=== PATIENT | male | born 1965 | race American Indian/Alaskan Native ===

== ENCOUNTER 2017-01-18 13:31 | Observation (INO) | payer OTHER ==
[2017-01-18 13:58] VITALS: BMI 25.0
--- NOTE | 2017-01-18 14:35 | PDOC ---
History of Present Illness - General Chief Complaint: Chest Pain Stated Complaint: CHEST PAIN Time Seen by Provider: 01/18/17 13:41 History Source: Patient Exam Limitations: No Limitations - History of Present Illness Initial Comments: 01/18/17 14:36 51 y.o. M with no pmh presenting with mid back pain and chest tightness. Patient was at work 2 hrs ago when he began having this pain. At it's worst it was 7/10, nonradiating, pressure like pain. Patient took 2 pills of aspirin 325 prior to arriving. Patient had a cardiac cath in 2009 @ [facility], which he states was negative. Patient also endorses diaphoresis and left arm dullness. Patient denies nausea, vomiting, abdominal pain, syncope. PSH: cardiac cath in 2009 @ [facility] All: NKDA FH: Mom with CAD w/ stents SH: denies smoking, alcohol, or drug use PCP: Dr. Michelle Past History - Past Medical History Allergies/Adverse Reactions: Allergies Allergy/AdvReac Type Severity Reaction Status Date / Time No Known Allergies Allergy Verified 01/18/17 13:56 Home Medications: Ambulatory Orders Hydroxyzine HCl [Atarax] 25 mg PO QID #30 tablet 10/29/11 No Home Medications 0 dose .ROUTE UTDICT 10/29/11 Prednisone [Deltasone -] 40 mg PO DAILY #7 tablet 10/29/11 Anemia: No Asthma: No Cancer: No Cardiac Disorders: No CVA: No COPD: No CHF: No DVT: No Dementia: No Diabetes: No Dialysis: No GI Disorders: No - Suicide/Smoking/Psychosocial Hx Smoking Status: No Smoking History: Never smoked Number of Cigarettes Smoked Daily: 0 Hx Alcohol Use: No Drug/Substance Use Hx: No Review of Systems - Review of Systems Able to Perform ROS?: Yes Comments:: 01/18/17 14:35 GENERAL/CONSTITUTIONAL: No fever or chills. No weakness. HEAD, EYES, EARS, NOSE AND THROAT: No change in vision. No ear pain or discharge. No sore throat. CARDIOVASCULAR: +chest tightness, No shortness of breath, +Diaphoresis RESPIRATORY: No cough, wheezing, or hemoptysis. GASTROINTESTINAL: No nausea, vomiting, diarrhea or constipation. GENITOURINARY: No dysuria, frequency, or change in urination. MUSCULOSKELETAL: No joint or muscle swelling or pain. No neck pain. +back pain SKIN: No rash NEUROLOGIC: No headache, vertigo, loss of consciousness, or change in strength/ sensation. ENDOCRINE: No increased thirst. No abnormal weight change HEMATOLOGIC/LYMPHATIC: No anemia, easy bleeding, or history of blood clots. ALLERGIC/IMMUNOLOGIC: No hives or skin allergy. *Physical Exam - Vital Signs Last Vital Signs Temp Pulse Resp BP Pulse Ox 97.7 F 80 16 140/91 100 01/18/17 13:56 01/18/17 13:56 01/18/17 13:56 01/18/17 13:58 01/18/17 13:56 - Physical Exam Comments: 01/18/17 14:35 GENERAL: Awake, alert, and fully oriented, in no acute distress HEAD: No signs of trauma, normocephalic, atraumatic EYES: PERRLA, EOMI, sclera anicteric, conjunctiva clear ENT: Auricles normal inspection, hearing grossly normal, nares patent, oropharynx clear without exudates. Moist mucosa NECK: Normal ROM, supple, no lymphadenopathy, JVD, or masses LUNGS: No distress, speaks full sentences, clear to auscultation bilaterally HEART: Regular rate and rhythm, normal S1 and S2, no murmurs, rubs or gallops, peripheral pulses normal and equal bilaterally. ABDOMEN: Soft, nontender, normoactive bowel sounds. No guarding, no rebound. No masses EXTREMITIES: Normal inspection, Normal range of motion, no edema. No clubbing or cyanosis. NEUROLOGICAL: Cranial nerves II through XII grossly intact. Normal speech, normal gait, no focal sensorimotor deficits SKIN: Warm, Dry, normal turgor, no rashes or lesions noted. ED Treatment Course - LABORATORY CBC & Chemistry Diagram: 01/18/17 14:24 01/18/17 14:24 - RADIOLOGY Radiology Studies Ordered: Category Date Time Status CHEST PA & LAT [RAD] Stat Radiology 01/18/17 14:19 Ordered Medical Decision Making - Medical Decision Making 01/18/17 14:44 51 y.o. M with no pmh presenting with mid back pain and chest tightness. Ddx: ACS, Pneumonia, Angina Plan: CBC, CMP, CXR, EKG, cardiac profile 01/18/17 16:52 CBC, CMP, CXR, EKG- unremarkable Troponins negative Patient to be admitted to hospitalist -- Obs *DC/Admit/Observation/Transfer Diagnosis at time of Disposition: Chest pain, rule out acute myocardial infarction - Discharge Dispostion Admit: Yes
[2017-01-18 14:49] LABS: BASOPHIL 0.7 % (0-2.0); EOSINOPHIL 0.6 % (0-4.5); MCH 26.5 pg (25.7-33.7); MCHC 33.1 g/dl (32.0-35.9); MEAN PLT VOLUME 8.7 fl (7.5-11.1); PLATELET COUNT 250 K/MM3 (134-434); RDW 13.5 % (11.9-15.9); WHITE BLOOD COUNT 9.3 K/mm3 (4.0-10.0)
[2017-01-18 15:07] LABS: ALBUMIN 3.9 g/dl (3.4-5.0); ANION GAP 6 (8-16); CO2 27 mmol/L (21-32); GLUCOSE,RANDOM 83 mg/dL (74-106)
[2017-01-18 15:12] LABS: ALK PHOS 85 U/L (45-117); BILIRUBIN,TOTAL 0.4 mg/dL (0.2-1.0); CPK 159 IU/L (39-308); CREATININE 0.9 mg/dL (0.7-1.3); SGOT/AST 26 U/L (15-37); SGPT/ALT 37 U/L (12-78); TOT PROT 7.7 g/dl (6.4-8.2); TROPONIN I 0.02 ng/ml (0.00-0.05)
--- NOTE | 2017-01-18 15:25 | EKG ---
Test Reason : Blood Pressure : / mmHG Vent. Rate : 087 BPM Atrial Rate : 087 BPM P-R Int : 166 ms QRS Dur : 096 ms QT Int : 378 ms P-R-T Axes : 048 060 055 degrees QTc Int : 454 ms NORMAL SINUS RHYTHM NORMAL ECG WHEN COMPARED WITH ECG OF 15-SEP-2007 16:43, NO SIGNIFICANT CHANGE WAS FOUND Confirmed by AARON LIEBERMAN MD ([id number]) on 01/18/2017 3:25:41 PM Referred By: Confirmed By:AARON LIEBERMAN MD
--- NOTE | 2017-01-18 15:47 | PDOC ---
Attending Attestation - Resident Resident Name: KrupajeremiasLoul - ED Attending Attestation I have performed the following: I have examined & evaluated the patient, The case was reviewed & discussed with the resident, I agree w/resident's findings & plan, Exceptions are as noted - HPI HPI: 01/18/17 15:42 51yo M denies PMH p/w chest pressure and mid back pain. 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 Pain 7/10 in mid back + chest. Pain a/w diaphoresis and dull pain to L shoulder. Pain is not pleuritic in nature. Took 2 ASA 325mg. No fevers, chills. No SOB. Was in his [employer]. Denies headache, focal weakness/ numbness. Denies recent travel/immobilization. Denies rashes, dysuria. Had similar symptoms in 2009, had a negative cath at [facility] at the time. Denies smoking. Mom had CAD with stents. Heart Score/ECG Review - History History: Highly suspicious - Electrocardiogram EKG: Normal - Age Age: 45-65 - Risk Factors Risk Factors Heart Score: Yes Positive family hx of cardiac disease Based on the list above the patient has:: 1-2 risk factors - Troponin Troponin: </= normal limit - Score Heart Score - Total: 4
--- NOTE | 2017-01-18 16:52 | HP ---
CHIEF COMPLAINT: Chest pain PCP: Dr. Michelle HISTORY OF PRESENT ILLNESS: This is a 51 year old male with PMHx of cardiac cath 2013, who presented to the ED with mid scapular pain with sudden onset at 11:45 am with left chest pain radiating to his left shoulder. The patient reports he has had a similar presentation in 2009 and 2013. In 2013 he states he had an ECHO, stress test, and cardiac cath which were all negative. He reports taking two ASA 325mg today when he began to feel the pain. He states the pain in his back was about a 7/10 and describes it as pressure like pain. He had associated diaphoresis. He denies any nausea, vomiting, abdominal pain, dizziness, headache, shortness of breath, lower extremity tingling or swelling ER course was notable for: (1) Temp 97.7, pulse 80, BP left arm 149/93, BP right arm 140/91, resp 16, O2 100% on RA (2) Trop x1 negative Recent Travel: denies PAST MEDICAL HISTORY: as above PAST SURGICAL HISTORY: denies Social History: Smoking: denies Alcohol: denies Drugs: denies Family History: Allergies No Known Allergies Allergy (Verified 01/18/17 13:56) HOME MEDICATIONS: Home Medications Medication Instructions Recorded Hydroxyzine HCl [Atarax] 25 mg PO QID #30 tablet 10/29/11 No Home Medications 0 dose .ROUTE UTDICT 10/29/11 Prednisone [Deltasone -] 40 mg PO DAILY #7 tablet 10/29/11 REVIEW OF SYSTEMS CONSTITUTIONAL: Diaphoresis. Absent: fever, chills, generalized weakness, malaise, loss of appetite, weight change HEENT: Absent: rhinorrhea, nasal congestion, throat pain, throat swelling, difficulty swallowing, mouth swelling, ear pain, eye pain, visual changes CARDIOVASCULAR: Mid scapular pain, left chest pain radiating to his left shoulder beginning around 11:45 this morning. Absent: syncope, palpitations, irregular heart rate, lightheadedness, peripheral edema RESPIRATORY: Absent: cough, shortness of breath, dyspnea with exertion, orthopnea, wheezing, stridor, hemoptysis GASTROINTESTINAL:Absent: abdominal pain, abdominal distension, nausea, vomiting , diarrhea, constipation, melena, hematochezia GENITOURINARY: Absent: dysuria, frequency, urgency, hesitancy, hematuria, flank pain, genital pain MUSCULOSKELETAL: Absent: myalgia, arthralgia, joint swelling, back pain, neck pain SKIN: Absent: rash, itching, pallor HEMATOLOGIC/IMMUNOLOGIC: Absent: easy bleeding, easy bruising, lymphadenopathy, frequent infections ENDOCRINE:Absent: unexplained weight gain, unexplained weight loss, heat intolerance, cold intolerance NEUROLOGIC: Absent: headache, focal weakness or paresthesias, dizziness, unsteady gait, seizure, mental status changes, bladder or bowel incontinence PSYCHIATRIC: Absent: anxiety, depression, suicidal or homicidal ideation, hallucinations. PHYSICAL EXAMINATION Vital Signs - 24 hr 01/18/17 01/18/17 13:56 13:58 Temperature 97.7 F Pulse Rate 80 Respiratory 16 Rate Blood Pressure 140/91 Blood Pressure 149/93 [Left Arm] Blood Pressure 140/91 [Right Arm] O2 Sat by Pulse 100 Oximetry (%) GENERAL: Awake, alert, and fully oriented, in no acute distress. HEAD: Normal with no signs of trauma. EYES: Pupils equal, round and reactive to light, sclera anicteric, conjunctiva clear. No lid lag. LUNGS: Breath sounds equal, clear to auscultation bilaterally. No wheezes, and no crackles. No accessory muscle use. HEART: Regular rate and rhythm, normal S1 and S2 without murmur, rub or gallop. ABDOMEN: Soft, nontender, not distended, normoactive bowel sounds, no guarding, no rebound, no masses. No hepatomegaly or splenomegaly. MUSCULOSKELETAL: Normal range of motion at all joints. No bony deformities or tenderness. No CVA tenderness. UPPER EXTREMITIES: 2+ pulses, warm, well-perfused. No cyanosis. No clubbing. No peripheral edema. LOWER EXTREMITIES: 2+ pulses, warm, well-perfused. No calf tenderness. No peripheral edema. NEUROLOGICAL: Cranial nerves II-XII intact. Normal speech. Normal gait. PSYCHIATRIC: Cooperative. Good eye contact. Appropriate mood and affect. SKIN: Warm, dry, normal turgor, no rashes or lesions noted, normal capillary refill. CBCD WBC 9.3 K/mm3 (4.0-10.0) 01/18/17 14:24 RBC 5.74 M/mm3 (4.00-5.60) H 01/18/17 14:24 Hgb 15.2 GM/dL (11.7-16.9) 01/18/17 14:24 Hct 45.9 % (35.4-49) 01/18/17 14:24 MCV 80.0 fl (80-96) 01/18/17 14:24 MCHC 33.1 g/dl (32.0-35.9) 01/18/17 14:24 RDW 13.5 % (11.9-15.9) 01/18/17 14:24 Plt Count 250 K/MM3 (134-434) 01/18/17 14:24 MPV 8.7 fl (7.5-11.1) 01/18/17 14:24 CMP Sodium 135 mmol/L (136-145) L 01/18/17 14:24 Potassium 4.5 mmol/L (3.5-5.1) 01/18/17 14:24 Chloride 102 mmol/L (98-107) 01/18/17 14:24 Carbon Dioxide 27 mmol/L (21-32) 01/18/17 14:24 Anion Gap 6 (8-16) L 01/18/17 14:24 BUN 14 mg/dL (7-18) 01/18/17 14:24 Creatinine 0.9 mg/dL (0.7-1.3) 01/18/17 14:24 Creat Clearance w eGFR > 60 (>60) 01/18/17 14:24 Random Glucose 83 mg/dL (74-106) 01/18/17 14:24 Calcium 9.0 mg/dL (8.5-10.1) 01/18/17 14:24 Total Bilirubin 0.4 mg/dL (0.2-1.0) 01/18/17 14:24 AST 26 U/L (15-37) 01/18/17 14:24 ALT 37 U/L (12-78) 01/18/17 14:24 Alkaline Phosphatase 85 U/L (45-117) 01/18/17 14:24 Total Protein 7.7 g/dl (6.4-8.2) 01/18/17 14:24 Albumin 3.9 g/dl (3.4-5.0) 01/18/17 14:24 CARDIAC ENZYMES Creatine Kinase 159 IU/L (39-308) 01/18/17 14:24 Troponin I 0.02 ng/ml (0.00-0.05) 01/18/17 14:24 Assessment: This is a 51 year old male with PMHx of cardiac cath 2013, who presented to the ED with mid scapular pain with sudden onset at 11:45 am with left chest pain radiating to his left shoulder. Plan: 1) Mid-sternal back pain, sudden onset - BP equal bilaterally - F/u CTA to r/o dissection 2) Chest pain - Trop x1 negative, trend x3 - EKG with NSR - Patient took ASA 325mg x2 today - F/u ECHO - F/u TSH, HgbA1c - F/u lipid panel - Attempt to obtain cath records from [facility] - F/u cardiology consult 3) F/E/N: - Monitor electrolytes - Regular diet 4) Prophylaxis: - SCDs bilaterally - OOB ambulating 5) Dispo: - Once condition improves CODE STATUS: FULL CODE Visit type - Emergency Visit Emergency Visit: Yes ED Registration Date: 01/18/17 Care time: The patient presented to the Emergency Department on the above date and was hospitalized for further evaluation of their emergent condition. - New Patient This patient is new to me today: Yes Date on this admission: 01/18/17 - Critical Care Critical Care patient: No
[2017-01-18] MEDS ORDERED: FLU VACCINE QUAD 60 MCG/0.5 ML (MDV 17-18) IM ONE (21:30)
[2017-01-18 22:02] LABS: TROPONIN I 0.51 ng/ml (0.00-0.05)
[2017-01-18] MEDS ORDERED: HEPARIN NA (PORCINE) 5,000 UNITS/ML 1ML VIAL IVPUSH PRN ×2 (22:53)
[2017-01-18] MEDS ORDERED: METOPROLOL TARTRATE 5 MG/5 ML VIAL IVPUSH ONE (22:54)
[2017-01-18] MEDS: HEPARIN INFUSION - 500 ML IVPB SCH (22:55)
--- NOTE | 2017-01-18 23:04 | HOSP ---
Subjective - Review of Symptoms Events since last encounter: Hospitalist Encounter Notified by Linoleum Installer, Dr. Corina Mcallister that the RN informed her of the Troponin I 0.51. Will need to start patient on Heparin Drip Spoke with the RN, a call was placed to Cardiology regarding the results Order placed for Stat EKG, INR Patient seen at bedside, reports lumbar pain, denies chest pain Orders, placed for Lopressor IV, Morphine Sulfate IV, O2 EKG reviewed, no acute ST or TWI noted Informed Dr. Schroeder of results, who agreed with starting anticoagulation. 03:39 Notified by RN that the Trop I #3 0.87. Per RN, patient has lumbar pain, denies chest pain EKG repeated- no change Plavix 300mg ordered stat Will continue to monitor RN informed Dr. Schroeder of Trop I- possible transfer for Cardiac Cath Physical Examination Vital Signs: Vital Signs Temperature 98.6 F 01/18/17 20:56 Pulse Rate 90 01/18/17 20:56 Respiratory Rate 18 01/18/17 20:56 Blood Pressure 137/90 01/18/17 20:56 O2 Sat by Pulse Oximetry (%) 98 01/18/17 20:56 Constitutional: Yes: Well Nourished, Mild Distress Eyes: Yes: WNL, Conjunctiva Clear, PERRL HENT: Yes: WNL, Atraumatic, Normocephalic Neck: Yes: WNL, Supple, Trachea Midline Cardiovascular: Yes: WNL, Regular Rate and Rhythm, S1, S2 Respiratory: Yes: WNL, Regular, CTA Bilaterally Gastrointestinal: Yes: WNL, Normal Bowel Sounds, Soft Musculoskeletal: Yes: Back Pain Extremities: Yes: WNL Edema: No Peripheral Pulses WNL: Yes Integumentary: Yes: WNL Neurological: Yes: WNL, Alert, Oriented ...Motor Strength: WNL Psychiatric: Yes: WNL, Alert, Oriented Labs: CBCD WBC 9.3 K/mm3 (4.0-10.0) 01/18/17 14:24 RBC 5.74 M/mm3 (4.00-5.60) H 01/18/17 14:24 Hgb 15.2 GM/dL (11.7-16.9) 01/18/17 14:24 Hct 45.9 % (35.4-49) 01/18/17 14:24 MCV 80.0 fl (80-96) 01/18/17 14:24 MCHC 33.1 g/dl (32.0-35.9) 01/18/17 14:24 RDW 13.5 % (11.9-15.9) 01/18/17 14:24 Plt Count 250 K/MM3 (134-434) 01/18/17 14:24 MPV 8.7 fl (7.5-11.1) 01/18/17 14:24 CMP Sodium 135 mmol/L (136-145) L 01/18/17 14:24 Potassium 4.5 mmol/L (3.5-5.1) 01/18/17 14:24 Chloride 102 mmol/L (98-107) 01/18/17 14:24 Carbon Dioxide 27 mmol/L (21-32) 01/18/17 14:24 Anion Gap 6 (8-16) L 01/18/17 14:24 BUN 14 mg/dL (7-18) 01/18/17 14:24 Creatinine 0.9 mg/dL (0.7-1.3) 01/18/17 14:24 Creat Clearance w eGFR > 60 (>60) 01/18/17 14:24 Random Glucose 83 mg/dL (74-106) 01/18/17 14:24 Calcium 9.0 mg/dL (8.5-10.1) 01/18/17 14:24 Total Bilirubin 0.4 mg/dL (0.2-1.0) 01/18/17 14:24 AST 26 U/L (15-37) 01/18/17 14:24 ALT 37 U/L (12-78) 01/18/17 14:24 Alkaline Phosphatase 85 U/L (45-117) 01/18/17 14:24 Total Protein 7.7 g/dl (6.4-8.2) 01/18/17 14:24 Albumin 3.9 g/dl (3.4-5.0) 01/18/17 14:24 CARDIAC ENZYMES Creatine Kinase 153 IU/L (39-308) 01/18/17 20:45 Troponin I 0.51 ng/ml (0.00-0.05) H D 01/18/17 20:45 Critical Care Total Critical Care Time (in minutes): 32 Critical Care Statement: The care of this patient involved high complexity decision making to prevent further life threatening deterioration of the patient 's condition and/or to evaluate & treat vital organ system(s) failure or risk of failure.
[2017-01-18] MEDS ORDERED: morphine CARPU-JECT 2 MG/1 ML DISP.SYRIN IVPUSH PRN (23:27)
[2017-01-18 23:43] LABS: INR 1.12 (0.82-1.09); PROTHROMBIN TIME (PATIENT) 12.4 SEC (9.98-11.88)
[2017-01-19 03:36] LABS: TROPONIN I 0.87 ng/ml (0.00-0.05)
[2017-01-19] MEDS ORDERED: CLOPIDOGREL BISULFATE 300 MG TABLET PO ONE (04:15)
[2017-01-19 07:12] LABS: BASOPHIL 0.3 % (0-2.0); EOSINOPHIL 1.8 % (0-4.5); MCH 26.7 pg (25.7-33.7); MCHC 33.1 g/dl (32.0-35.9); MEAN CELL VOLUME 80.7 fl (80-96); NEUTROPHILS 50.1 % (42.8-82.8); PLATELET COUNT 266 K/MM3 (134-434); RDW 13.5 % (11.9-15.9); WHITE BLOOD COUNT 9.1 K/mm3 (4.0-10.0)
[2017-01-19 08:36] LABS: ALBUMIN 3.6 g/dl (3.4-5.0); ANION GAP 11 (8-16); CALCIUM 9.3 mg/dL (8.5-10.1); CHOLESTEROL 205 mg/dL (50-200); CO2 23 mmol/L (21-32); CREATININE 0.9 mg/dL (0.7-1.3); GLUCOSE,RANDOM 90 mg/dL (74-106); MAGNESIUM 2.3 mg/dL (1.8-2.4); SGOT/AST 26 U/L (15-37); SGPT/ALT 39 U/L (12-78); TOT PROT 7.2 g/dl (6.4-8.2)
[2017-01-19 08:38] LABS: ALK PHOS 83 U/L (45-117); BILIRUBIN,TOTAL 0.6 mg/dL (0.2-1.0)
[2017-01-19] MEDS ORDERED: ATORVASTATIN CA 40 MG TABLET (FP) PO ONE (09:01)
--- NOTE | 2017-01-19 09:13 | CON.CARD ---
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 In 2013 he states he had an ECHO, stress test, and cardiac cath which were all negative. He reports taking two ASA 325mg today when he began to feel the pain. He states the pain in his back was about a 7/10 and describes it as pressure like pain. He had associated diaphoresis. He denies any nausea, vomiting, abdominal pain, dizziness, headache, shortness of breath, lower extremity tingling or swelling, near or true syncope, palpitations, orthopnea, PND or LE edema, sxs have since improved. - History Source History Provided By: Patient Limitations to Obtaining History: No Limitations - Past Medical History Cardio/Vascular: Yes: Hyperlipdemia - Alcohol/Substance Use Hx Alcohol Use: No - Smoking History Smoking history: Never smoked Have you smoked in the past 12 months: No Aproximately how many cigarettes per day: 0 Home Medications - Allergies Allergies/Adverse Reactions: Allergies Allergy/AdvReac Type Severity Reaction Status Date / Time No Known Allergies Allergy Verified 01/18/17 13:56 - Home Medications Home Medications: Ambulatory Orders Hydroxyzine HCl [Atarax] 25 mg PO QID #30 tablet 10/29/11 No Home Medications 0 dose .ROUTE UTDICT 10/29/11 Prednisone [Deltasone -] 40 mg PO DAILY #7 tablet 10/29/11 Review of Systems - Review of Systems Constitutional: reports: Diaphoresis Cardiovascular: reports: Chest Pain Vital Signs: Vital Signs Temperature 98.4 F 01/19/17 06:00 Pulse Rate 78 01/19/17 06:00 Respiratory Rate 18 01/19/17 06:00 Blood Pressure 114/73 01/19/17 06:00 O2 Sat by Pulse Oximetry (%) 99 01/18/17 21:00 Constitutional: Yes: No Distress, Calm Neck: Yes: Supple Respiratory: Yes: Regular, CTA Bilaterally Gastrointestinal: Yes: Normal Bowel Sounds, Soft Cardiovascular: Yes: Regular Rate and Rhythm JVD: No Carotid Bruit: No Heart Sounds: Yes: S1, S2 Edema: No - Other Data Labs, Other Data: CBC, BMP 01/19/17 06:30 01/19/17 06:30 INR, PTT INR 1.12 (0.82-1.09) 01/18/17 22:38 Troponin, BNP 01/18/17 01/19/17 20:45 02:48 Troponin I 0.51 H D 0.87 H* D Troponin, BNP 01/18/17 01/19/17 20:45 02:48 Troponin I 0.51 H D 0.87 H* D NSR @ [address]-T changes Imaging - Results Chest X-ray: Report Reviewed (NAD) Cat Scan: Report Reviewed (+ coronary calcifications, negative aortic dissection or aneurysm) Problem List - Problems (1) Unstable angina Code(s): I20.0 - UNSTABLE ANGINA (2) Hyperlipidemia Code(s): E78.5 - HYPERLIPIDEMIA, UNSPECIFIED Qualifiers: Hyperlipidemia type: pure hypercholesterolemia Qualified Code(s): E78.00 - Pure hypercholesterolemia, unspecified; E78.00 - Pure hypercholesterolemia, unspecified; E78.00 - Pure hypercholesterolemia, unspecified; E78.0 - Pure hypercholesterolemia (3) Non-ST elevation (NSTEMI) myocardial infarction Code(s): I21.4 - NON-ST ELEVATION (NSTEMI) MYOCARDIAL INFARCTION Assessment/Plan 1. CAD with [place]/NSTEMI 2. Hyperlipidemia P:1. Cycle cardiac enzymes to document peak 2. Echo to assess ventricular and valve fxn 3. Start Toprol XL 25 qd, Lipitor 80 qhs, continue ASA and Plavix, heparin gtt for now 4. Planned for LHC +/-PCI at [facility], risks and benefits addressed, patient agrees to proceed 5. Thank you for consultative opportunity
[2017-01-19] MEDS: HEPARIN INFUSION - 500 ML IVPB SCH (09:48)
--- NOTE | 2017-01-19 09:49 | EKG ---
Test Reason : Blood Pressure : / mmHG Vent. Rate : 072 BPM Atrial Rate : 072 BPM P-R Int : 176 ms QRS Dur : 094 ms QT Int : 388 ms P-R-T Axes : 032 056 053 degrees QTc Int : 424 ms NORMAL SINUS RHYTHM NORMAL ECG WHEN COMPARED WITH ECG OF 18-JAN-2017 13:40, NO SIGNIFICANT CHANGE WAS FOUND Confirmed by VIOLET MIRANDA MD ([id number]) on 01/19/2017 9:49:10 AM Referred By: Confirmed By:VIOLET MIRANDA MD
[2017-01-19] MEDS ORDERED: METOPROLOL TARTRATE 25 MG TABLET (FP) PO SCH (10:00)
[2017-01-19] MEDS ORDERED: TICAGRELOR 90 MG TABLET PO SCH (10:00)
[2017-01-19] MEDS ORDERED: ASPIRIN 81 MG CHEWABLE TABLETS PO SCH (10:00)
[2017-01-19 11:27] LABS: THYROID STIMULATING HORMONE 0.88 uIU/ml (0.358-3.74)
[2017-01-19 11:45] VITALS: BP 120/80; PULSE 80; TEMP 98
--- NOTE | 2017-01-19 12:00 | DS ---
Physical Exam: SUBJECTIVE: Patient seen and examined. Denies Chest pain , still has mid back pain OBJECTIVE: Vital Signs Period Temp Pulse Resp BP Sys/Read Pulse Ox Last 24 Hr 98 F-98.6 F 71-90 16-18 114-137/71-90 98-99 PE Neuro: alert, awake, cn 2-12intact Pulm: CTAB CV: s1 s2 rrr nomrg Abd: s nt nd +bs Ext: warm, no le edema msk: mid back discomfort with inspiration Laboratory Results - last 24 hr 01/18/17 01/18/17 01/19/17 20:45 22:38 02:48 WBC RBC Hgb Hct MCV MCH MCHC RDW Plt Count MPV Neutrophils % Lymphocytes % Monocytes % Eosinophils % Basophils % PT with INR 12.40 H INR 1.12 PTT (Actin FS) Sodium Potassium Chloride Carbon Dioxide Anion Gap BUN Creatinine Creat Clearance w eGFR Random Glucose Hemoglobin A1c % Calcium Phosphorus Magnesium Total Bilirubin AST ALT Alkaline Phosphatase Creatine Kinase 153 151 Creatine Kinase Index 2.5 3.2 CK-MB (CK-2) 3.938 H 4.891 H Troponin I 0.51 H D 0.87 H* D Total Protein Albumin Triglycerides Cholesterol Total LDL Cholesterol HDL Cholesterol TSH 0.88 01/19/17 01/19/17 01/19/17 06:30 06:30 06:30 WBC 9.1 RBC 5.88 H Hgb 15.7 Hct 47.5 MCV 80.7 MCH 26.7 MCHC 33.1 RDW 13.5 Plt Count 266 MPV 9.0 Neutrophils % 50.1 D Lymphocytes % 39.4 D Monocytes % 8.4 Eosinophils % 1.8 D Basophils % 0.3 PT with INR INR PTT (Actin FS) Sodium 140 Potassium 4.3 Chloride 106 Carbon Dioxide 23 Anion Gap 11 BUN 20 H D Creatinine 0.9 Creat Clearance w eGFR > 60 Random Glucose 90 Hemoglobin A1c % 5.4 Calcium 9.3 Phosphorus 4.0 Magnesium 2.3 Total Bilirubin 0.6 D AST 26 ALT 39 Alkaline Phosphatase 83 Creatine Kinase Creatine Kinase Index CK-MB (CK-2) Troponin I Total Protein 7.2 Albumin 3.6 Triglycerides 102 Cholesterol 205 H Total LDL Cholesterol 146 H HDL Cholesterol 39 L TSH HOSPITAL COURSE: Date of Admission:01/18/17 Date of Discharge: 01/19/17 Minutes to complete discharge: 37 Discharge Summary Reason For Visit: CHEST PAIN, RULE OUT ACUTE MYOCARDIAL INFARCTION Current Active Problems Chest pain, rule out acute myocardial infarction (Acute) Hyperlipidemia (Acute) Non-ST elevation (NSTEMI) myocardial infarction (Acute) Unstable angina (Acute) Hospital Course: Initial Hospital Course: Briefly, this 51 year old male with PMHx of cardiac cath 2013, presented to the ED with mid scapular pain with sudden onset at 11:45 am with left chest pain radiating to his left shoulder. The patient had a similar presentation in 2009 and 2013. In 2013 he had an ECHO, stress test, and cardiac cath which were all negative. He took two ASA 325mg when he began to feel the pain. The back pain was about a 7/10 and describes it as pressure like pain. He had associated diaphoresis. Subsequent Hospital Course/Progress Note/Transfer Summary: 1. Mid-sternal back pain, sudden onset - BP equal bilaterally - CTA negative for pe/Aaa 2. NSTEMI /Chest pain - Troponin 2 and 3 rise - Started Toprol XL 25 qd, Lipitor 80 qhs, continue ASA and Berlinta heparin gtt for now - Planned for [facility]PCI at [facility] - Lipitor 80mg hs 3. HLD - Lipitor Dispo: - Transfer to [place] as above - Instructions Referrals: Rex Michelle MD [Primary Care Provider] - Gavin Russo MD [Staff Physician] - Disposition: TRANSFER ACUTE CARE/OTHER HOSP - Home Medications Comprehensive Discharge Medication List: Ambulatory Orders Hydroxyzine HCl [Atarax] 25 mg PO QID #30 tablet 10/29/11 No Home Medications 0 dose .ROUTE UTDICT 10/29/11 Prednisone [Deltasone -] 40 mg PO DAILY #7 tablet 10/29/11 This patient is new to me today: Yes Date on this admission: 01/19/17 Emergency Visit: Yes ED Registration Date: 01/18/17 Care time: The patient presented to the Emergency Department on the above date and was hospitalized for further evaluation of their emergent condition. Critical Care patient: No - Discharge Referral Referred to [facility] Med [facility] No
--- NOTE | 2017-01-19 12:02 | EKG ---
Test Reason : Blood Pressure : / mmHG Vent. Rate : 073 BPM Atrial Rate : 073 BPM P-R Int : 172 ms QRS Dur : 098 ms QT Int : 388 ms P-R-T Axes : 033 064 047 degrees QTc Int : 427 ms NORMAL SINUS RHYTHM EARLY REPOLARIZATION WHEN COMPARED WITH ECG OF 19-JAN-2017 02:40, NO SIGNIFICANT CHANGE WAS FOUND Confirmed by VIOLET MIRANDA MD ([id number]) on 01/19/2017 12:02:13 PM Referred By: LUIS FERNANDO BERNAL Confirmed By:VIOLET MIRANDA MD
--- NOTE | 2017-01-19 12:03 | EKG ---
Test Reason : Blood Pressure : / mmHG Vent. Rate : 072 BPM Atrial Rate : 072 BPM P-R Int : 192 ms QRS Dur : 092 ms QT Int : 394 ms P-R-T Axes : 036 046 050 degrees QTc Int : 431 ms NORMAL SINUS RHYTHM ST ELEVATION, CONSIDER EARLY REPOLARIZATION WHEN COMPARED WITH ECG OF 18-JAN-2017 22:44, NO SIGNIFICANT CHANGE WAS FOUND Confirmed by VIOLET MIRANDA MD ([id number]) on 01/19/2017 12:03:33 PM Referred By: Confirmed By:VIOLET MIRANDA MD
[2017-01-20] MEDS ORDERED: CLOPIDOGREL BISULFATE 75 MG TABLET (FP) PO SCH (10:00)
--- NOTE | 2017-01-20 11:54 | PN ---
Progress Note (short form) - Note Progress Note: Pt was transferred to [facility] for C. Intermediate high lateral vessel, luminal irregularities LAD and LCx, normal LV fxn, normal LVEDP, no aortic stenosis or mitral regurgitation, Mynx deployed right [employer] access, planned for optimal medical therapy for secondary prevention of CVD with ASA 81 qd, Toprol XL 25 qd , Crestor 20 qd (LDL 146), will f/u in my office next week. Problem List - Problems (1) Unstable angina Code(s): I20.0 - UNSTABLE ANGINA (2) Hyperlipidemia Code(s): E78.5 - HYPERLIPIDEMIA, UNSPECIFIED Qualifiers: Hyperlipidemia type: pure hypercholesterolemia Qualified Code(s): E78.00 - Pure hypercholesterolemia, unspecified; E78.00 - Pure hypercholesterolemia, unspecified; E78.00 - Pure hypercholesterolemia, unspecified; E78.0 - Pure hypercholesterolemia (3) Non-ST elevation (NSTEMI) myocardial infarction Code(s): I21.4 - NON-ST ELEVATION (NSTEMI) MYOCARDIAL INFARCTION
== END 2017-01-19 13:12 | disposition short-term general hospital (02) ==
LOC: JER 13:31 → JERBED 16:53 → J4W 20:10
PROVIDERS: ADMIT Internal Medicine; ATTEND Nurse Practitioner Acute Care
PROC: 3E033GC Introduction of Other Therapeutic Substance into Peripheral Vein, Percutaneous Approach (ICD-10-PCS; principal; 2017-01-18)
DX: I21.4 Non-ST elevation (NSTEMI) myocardial infarction (principal); R07.9 Chest pain, unspecified; I20.0 Unstable angina; E78.5 Hyperlipidemia, unspecified; Z98.61 Coronary angioplasty status
CPT/HCPCS: 36415; 71020-TC; 71275-TC; 74175-TC; 80053; 80061; 82553; 83036; 83721; 83735; 84100; 84443; 84484; 85025; 85610; 85730; 93005; 93010; 93306-TC; 99283-25; G0378; J1644